=== PATIENT | male | born 1940 | race Caucasian/White ===

== ENCOUNTER 2020-06-11 22:07 | Inpatient (IN) | payer MEDICARE, BC ==
[~2020-06-11] VITALS: Ht 195.6 cm; Wt 104.0 kg
[2020-06-11] MEDS ORDERED: cloNIDine HCL 0.1 MG TAB PO ONE (22:45)
[2020-06-11 23:43] LABS: Basophils # (auto) 0 10 ^3/uL (0-0.2); Basophils % (auto) 0.4 % (0.0-2.0); Eosinophils # (auto) 0.3 10 ^3/uL (0-0.8); Eosinophils % (auto) 3.4 % (0.0-7.0); Hematocrit 40.6 % (41.0-53.0); Hemoglobin 14.5 g/dL (13.5-17.5); Lymphocytes # (auto) 0.7 10 ^3/uL (0.4-5.4); Lymphocytes % (auto) 7.3 % (10.0-50.0); Mean Corpuscular Hemoglobin 31.2 pg (28.0-32.0); Mean Corpuscular Hgb Conc. 35.8 g/dL (32.0-36.0); Mean Corpuscular Volume 87.1 fL (80.0-100.0); Monocytes # (auto) 0.8 10 ^3/uL (0-1.3); Monocytes % (auto) 8.5 % (0.0-12.0); Neutrophils # (auto) 7.3 10 ^3/uL (1.6-8.6); Neutrophils % (auto) 80.4 % (37.0-80.0); Nucleated Red Blood Cells % 0.1 %; Platelet Count (auto) 194 10^3/uL (140-450); Red Blood Cells 4.67 10^6/uL (4.5-5.90); Red Cell Distribution Width 14.4 % (11.8-14.3)
[2020-06-11 23:55] LABS: Albumin 3.4 g/dL (3.4-5.0); BUN/Creatinine Ratio 10.1; Calcium 8.7 mg/dL (8.5-10.1); Magnesium 2.4 mg/dL (1.6-2.6); Potassium 3.3 mmol/L (3.5-5.1)
[2020-06-11 23:58] LABS: Bilirubin, Total 0.4 mg/dL (0.2-1.0); Total Protein 6.4 g/dL (6.4-8.2)
[2020-06-12] MEDS ORDERED: POTASSIUM CHL 20 Meq TABLET PO ONE (01:15)
[2020-06-12 02:28] LABS: Urine Bacteria NONE SEEN /hpf (None Seen); Urine Blood 2+ /uL (Negative); Urine Mucus FEW (None Seen); Urine Specific Gravity 1.013 (1.001-1.035); Urine WBC 53 /hpf (0 - 3)
[2020-06-12] MEDS ORDERED: NITROGLYCERIN 0.4 MG SL TAB SL PRN (02:30)
[2020-06-12] MEDS ORDERED: DEXTROSE (50%) 50ML SYRG IV PRN (02:30)
[2020-06-12] MEDS ORDERED: HYDROcodone-ACET 5/325MG TAB PO PRN (02:30)
[2020-06-12] MEDS ORDERED: MORPHINE SULFATE 4 MG/ML SYR/VIAL IV PRN (02:30)
[2020-06-12] MEDS ORDERED: MORPHINE SULF INJ 2 MG/ML SYRINGE 1ML IV PRN (02:30)
[2020-06-12] MEDS ORDERED: ACETAMINOPHEN 325 MG TAB PO PRN (02:30)
[2020-06-12] MEDS: ONDANSETRON HCL 4 MG/2 ML VIAL IV PRN (03:03)
[2020-06-12] MEDS: hydrALAZINE HCL 20 MG/ML VL IV PRN (03:46)
[2020-06-12] MEDS: hydrALAZINE HCL 25 MG TAB PO SCH ×3 (06:56→22:00)
[2020-06-12] MEDS: SODIUM CHLOR 0.9% PF (SALINE LOCK) 10ML VIAL/SYR IV SCH ×3 (06:56→22:00)
[2020-06-12] MEDS: InsuLIN REG 1unit/0.01ml Soln (100units/ml) SC SCH ×4 (07:01→22:00)
[2020-06-12] MEDS: ACCU-CHEK COMFORT CURVE STRIP VI SCH ×4 (07:01→22:00)
[2020-06-12 07:23] LABS: Basophils # (auto) 0 10 ^3/uL (0-0.2); Basophils % (auto) 0.4 % (0.0-2.0); Eosinophils # (auto) 0.3 10 ^3/uL (0-0.8); Eosinophils % (auto) 3.3 % (0.0-7.0); Hematocrit 39.2 % (41.0-53.0); Hemoglobin 14.1 g/dL (13.5-17.5); Lymphocytes # (auto) 0.7 10 ^3/uL (0.4-5.4); Lymphocytes % (auto) 9.4 % (10.0-50.0); Mean Corpuscular Hgb Conc. 35.9 g/dL (32.0-36.0); Mean Corpuscular Volume 86.4 fL (80.0-100.0); Monocytes # (auto) 0.8 10 ^3/uL (0-1.3); Neutrophils # (auto) 6.1 10 ^3/uL (1.6-8.6); Neutrophils % (auto) 76.9 % (37.0-80.0); Platelet Count (auto) 189 10^3/uL (140-450); Red Blood Cells 4.54 10^6/uL (4.5-5.90); Red Cell Distribution Width 14.1 % (11.8-14.3)
[2020-06-12 07:43] LABS: Potassium 3.6 mmol/L (3.5-5.1)
[2020-06-12 07:47] LABS: Albumin 3.1 g/dL (3.4-5.0); BUN/Creatinine Ratio 8.9; Calcium 8.3 mg/dL (8.5-10.1)
[2020-06-12 07:56] LABS: Bilirubin, Total 0.8 mg/dL (0.2-1.0)
[2020-06-12 09:26] LABS: Cholesterol 147 mg/dL (< 200); HDL Cholesterol 39 mg/dL (40-59); LDL Cholesterol 80 mg/dL (< 100); Triglycerides 250 mg/dL (< 150)
[2020-06-12] MEDS: FAMOTIDINE (10MG/ML) 2ML VL IV SCH ×2 (09:48→22:00)
[2020-06-12] MEDS: amLODIPine BESYLATE 5 MG TAB PO SCH (09:50)
[2020-06-12] MEDS: HEPARIN SODIUM (PORCINE) 5000 UNITS/ML 1ML VIAL SC SCH ×2 (09:50→22:00)
[2020-06-12] MEDS: ASCORBIC ACID 500 MG TAB PO SCH ×2 (09:51→22:00)
[2020-06-12] MEDS: MULTIPLE VITAMIN TAB PO SCH (09:51)
[2020-06-12] MEDS ORDERED: MANNITOL FTV 25% 12.5 GM/50 ML 50 ML IV ONE (13:15)
[2020-06-12] MEDS: SODIUM CHLORIDE 0.9% 1,000 ML IV SCH (13:45)
[2020-06-12] MEDS ORDERED: ASPI-543 PO (14:47)
[2020-06-12] MEDS ORDERED: AMLO-496 PO (14:47)
[2020-06-12] MEDS ORDERED: ERGO1CAP12 PO (14:47)
[2020-06-12] MEDS ORDERED: POTA-167 (14:47)
[2020-06-12] MEDS ORDERED: TAMS0.4C36 PO (14:47)
[2020-06-12] MEDS ORDERED: SPIR25TA8 PO (14:47)
[2020-06-12] MEDS ORDERED: METO1TAB9 PO (14:47)
[2020-06-12] MEDS ORDERED: CLON0.1T PO (14:47)
[2020-06-12 17:00] VITALS: BP 134/71
[2020-06-12] MEDS: TAMSULOSIN HYDROCHLORIDE 0.4 MG CAP PO SCH (17:29)
[2020-06-12 20:00] VITALS: BP 150/75
[2020-06-12 22:00] VITALS: BP 150/75
[2020-06-12] MEDS ORDERED: HEPARIN SODIUM (PORCINE) 5000 UNITS/ML 1ML VIAL ONE (22:38)
[2020-06-13 05:00] VITALS: BP 148/77
[2020-06-13] MEDS: SODIUM CHLOR 0.9% PF (SALINE LOCK) 10ML VIAL/SYR IV SCH ×3 (05:30→21:09)
[2020-06-13] MEDS: SODIUM CHLORIDE 0.9% 1,000 ML IV SCH ×3 (05:30→21:23)
[2020-06-13] MEDS: ACCU-CHEK COMFORT CURVE STRIP VI SCH ×4 (05:48→21:10)
[2020-06-13] MEDS: hydrALAZINE HCL 25 MG TAB PO SCH ×3 (05:48→21:09)
[2020-06-13] MEDS: InsuLIN REG 1unit/0.01ml Soln (100units/ml) SC SCH ×4 (05:53→21:19)
[2020-06-13 06:56] LABS: Basophils # (auto) 0 10 ^3/uL (0-0.2); Basophils % (auto) 0.2 % (0.0-2.0); Eosinophils # (auto) 0.3 10 ^3/uL (0-0.8); Eosinophils % (auto) 4.8 % (0.0-7.0); Hematocrit 36.5 % (41.0-53.0); Lymphocytes # (auto) 0.9 10 ^3/uL (0.4-5.4); Lymphocytes % (auto) 12.6 % (10.0-50.0); Mean Corpuscular Hemoglobin 31.3 pg (28.0-32.0); Mean Corpuscular Hgb Conc. 35.7 g/dL (32.0-36.0); Mean Corpuscular Volume 87.8 fL (80.0-100.0); Monocytes # (auto) 0.8 10 ^3/uL (0-1.3); Monocytes % (auto) 10.9 % (0.0-12.0); Neutrophils % (auto) 71.5 % (37.0-80.0); Platelet Count (auto) 187 10^3/uL (140-450); Red Blood Cells 4.16 10^6/uL (4.5-5.90); Red Cell Distribution Width 14.6 % (11.8-14.3); White Blood Cell 6.9 10^3/uL (4.4-10.8)
[2020-06-13 07:02] LABS: Albumin 2.7 g/dL (3.4-5.0); Calcium 8.1 mg/dL (8.5-10.1)
[2020-06-13 07:07] LABS: BUN/Creatinine Ratio 8.5; Bilirubin, Total 0.5 mg/dL (0.2-1.0); Total Protein 5.7 g/dL (6.4-8.2)
[2020-06-13 08:56] VITALS: BP 133/75
[2020-06-13] MEDS: HEPARIN SODIUM (PORCINE) 5000 UNITS/ML 1ML VIAL SC SCH ×2 (10:04→21:03)
[2020-06-13] MEDS: MULTIPLE VITAMIN TAB PO SCH (10:05)
[2020-06-13] MEDS: FAMOTIDINE (10MG/ML) 2ML VL IV SCH ×2 (10:05→21:09)
[2020-06-13] MEDS: amLODIPine BESYLATE 5 MG TAB PO SCH (10:06)
[2020-06-13] MEDS: ASCORBIC ACID 500 MG TAB PO SCH ×2 (10:06→21:09)
[2020-06-13] MEDS ORDERED: MANNITOL FTV 25% 12.5 GM/50 ML 50 ML IV ONE (11:45)
[2020-06-13 13:12] VITALS: BP 141/70
[2020-06-13 17:03] VITALS: BP 138/76
[2020-06-13] MEDS: TAMSULOSIN HYDROCHLORIDE 0.4 MG CAP PO SCH (17:52)
[2020-06-13 21:48] VITALS: BP 140/77
[2020-06-13] MEDS ORDERED: TEMAZEPAM 15 MG CAP PO ONE (23:15)
[2020-06-14 04:54] VITALS: BP 151/88
[2020-06-14] MEDS: hydrALAZINE HCL 25 MG TAB PO SCH ×3 (05:54→22:08)
[2020-06-14] MEDS: SODIUM CHLOR 0.9% PF (SALINE LOCK) 10ML VIAL/SYR IV SCH ×3 (05:58→22:08)
[2020-06-14] MEDS: ACCU-CHEK COMFORT CURVE STRIP VI SCH ×4 (06:23→22:09)
[2020-06-14] MEDS: InsuLIN REG 1unit/0.01ml Soln (100units/ml) SC SCH ×4 (06:23→22:08)
[2020-06-14 08:03] LABS: BUN/Creatinine Ratio 8.2; Calcium 7.9 mg/dL (8.5-10.1); Potassium 4.3 mmol/L (3.5-5.1)
[2020-06-14 09:00] VITALS: BP 141/77
[2020-06-14] MEDS: ASCORBIC ACID 500 MG TAB PO SCH ×2 (09:44→22:09)
[2020-06-14] MEDS: FAMOTIDINE (10MG/ML) 2ML VL IV SCH ×2 (09:44→22:08)
[2020-06-14] MEDS: HEPARIN SODIUM (PORCINE) 5000 UNITS/ML 1ML VIAL SC SCH ×2 (09:44→22:00)
[2020-06-14] MEDS: DOCUSATE SOD 100 MG CAP PO SCH ×2 (09:44→22:09)
[2020-06-14] MEDS: MULTIPLE VITAMIN TAB PO SCH (09:44)
[2020-06-14] MEDS: amLODIPine BESYLATE 5 MG TAB PO SCH (09:45)
[2020-06-14 10:58] LABS: INR 1.01 (0.9-1.15); Partial Thromboplastin Time 29.2 sec (23.0-31.2)
[2020-06-14] MEDS ORDERED: HEPARIN IN NS 1000Units/500mL 0 ML ONE (11:18)
[2020-06-14] MEDS ORDERED: IODIXANOL 320MG/ML 100ML BTL IV ONE (11:18)
[2020-06-14] MEDS ORDERED: LIDOCAINE 2%HCL (LOCAL ANESTH.) INJ 20ML MDV ONE ×2 (11:18→12:13)
[2020-06-14] MEDS ORDERED: fentaNYL CITRATE 100 MCG/2 ML VL ONE (12:12)
[2020-06-14] MEDS ORDERED: MIDAZOLAM HCL 1MG/1ML-2 ML VIAL ONE (12:12)
[2020-06-14] MEDS ORDERED: IOHEXOL 350 MG/ML 100ML IJ ONE (12:24)
[2020-06-14] MEDS: SODIUM CHLORIDE 0.9% 1,000 ML IV SCH (16:45)
[2020-06-14 17:00] VITALS: BP 147/80
[2020-06-14] MEDS: TAMSULOSIN HYDROCHLORIDE 0.4 MG CAP PO SCH (17:09)
[2020-06-14 22:00] VITALS: BP 143/77
[2020-06-15 05:00] VITALS: BP 151/69
[2020-06-15] MEDS: hydrALAZINE HCL 25 MG TAB PO SCH ×3 (06:13→22:32)
[2020-06-15] MEDS: SODIUM CHLOR 0.9% PF (SALINE LOCK) 10ML VIAL/SYR IV SCH ×3 (06:13→22:00)
[2020-06-15] MEDS: ACCU-CHEK COMFORT CURVE STRIP VI SCH ×4 (06:13→22:33)
[2020-06-15] MEDS: InsuLIN REG 1unit/0.01ml Soln (100units/ml) SC SCH ×4 (06:21→22:37)
[2020-06-15] MEDS: SODIUM CHLORIDE 0.9% 1,000 ML IV SCH ×2 (06:33→12:30)
[2020-06-15 06:34] LABS: BUN/Creatinine Ratio 11.1; Calcium 8.8 mg/dL (8.5-10.1); Potassium 3.9 mmol/L (3.5-5.1)
[2020-06-15 06:47] LABS: Basophils # (auto) 0 10 ^3/uL (0-0.2); Basophils % (auto) 0.4 % (0.0-2.0); Eosinophils # (auto) 0 10 ^3/uL (0-0.8); Eosinophils % (auto) 0.7 % (0.0-7.0); Hematocrit 38.8 % (41.0-53.0); Hemoglobin 13.7 g/dL (13.5-17.5); Lymphocytes # (auto) 0.5 10 ^3/uL (0.4-5.4); Lymphocytes % (auto) 8.7 % (10.0-50.0); Mean Corpuscular Hemoglobin 30.9 pg (28.0-32.0); Mean Corpuscular Hgb Conc. 35.3 g/dL (32.0-36.0); Mean Corpuscular Volume 87.5 fL (80.0-100.0); Monocytes # (auto) 0.7 10 ^3/uL (0-1.3); Monocytes % (auto) 11.2 % (0.0-12.0); Neutrophils # (auto) 4.7 10 ^3/uL (1.6-8.6); Platelet Count (auto) 238 10^3/uL (140-450); Red Blood Cells 4.44 10^6/uL (4.5-5.90); Red Cell Distribution Width 14.5 % (11.8-14.3)
[2020-06-15 09:00] VITALS: BP 142/75
[2020-06-15] MEDS: HEPARIN SODIUM (PORCINE) 5000 UNITS/ML 1ML VIAL SC SCH ×2 (10:47→22:24)
[2020-06-15] MEDS: FAMOTIDINE (10MG/ML) 2ML VL IV SCH ×2 (10:47→22:00)
[2020-06-15] MEDS: ASCORBIC ACID 500 MG TAB PO SCH ×2 (10:48→22:26)
[2020-06-15] MEDS: amLODIPine BESYLATE 5 MG TAB PO SCH (10:48)
[2020-06-15] MEDS: MULTIPLE VITAMIN TAB PO SCH (10:49)
[2020-06-15] MEDS: DOCUSATE SOD 100 MG CAP PO SCH ×2 (10:49→22:26)
[2020-06-15 13:00] VITALS: BP 156/86
[2020-06-15 17:00] VITALS: BP 144/87
[2020-06-15] MEDS: TAMSULOSIN HYDROCHLORIDE 0.4 MG CAP PO SCH (18:02)
[2020-06-15 22:00] VITALS: BP 170/90
[2020-06-16 05:00] VITALS: BP 135/66
[2020-06-16] MEDS: SODIUM CHLORIDE 0.9% 1,000 ML IV SCH ×2 (05:10→23:02)
[2020-06-16] MEDS: SODIUM CHLOR 0.9% PF (SALINE LOCK) 10ML VIAL/SYR IV SCH ×3 (06:00→22:00)
[2020-06-16] MEDS: hydrALAZINE HCL 25 MG TAB PO SCH ×3 (06:09→22:44)
[2020-06-16] MEDS: ACCU-CHEK COMFORT CURVE STRIP VI SCH ×4 (06:13→23:01)
[2020-06-16] MEDS: InsuLIN REG 1unit/0.01ml Soln (100units/ml) SC SCH ×4 (06:14→23:01)
[2020-06-16 08:44] LABS: Albumin 3.1 g/dL (3.4-5.0); Calcium 8.7 mg/dL (8.5-10.1); Potassium 3.4 mmol/L (3.5-5.1)
[2020-06-16 08:46] LABS: BUN/Creatinine Ratio 15.5
[2020-06-16 08:49] LABS: Bilirubin, Total 0.6 mg/dL (0.2-1.0); Phosphorus 3.9 mg/dL (2.5-4.90)
[2020-06-16 09:00] VITALS: BP 154/89
[2020-06-16] MEDS: FAMOTIDINE (10MG/ML) 2ML VL IV SCH ×2 (10:00→22:41)
[2020-06-16] MEDS: DOCUSATE SOD 100 MG CAP PO SCH ×2 (10:28→22:42)
[2020-06-16] MEDS: MULTIPLE VITAMIN TAB PO SCH (10:28)
[2020-06-16] MEDS: ASCORBIC ACID 500 MG TAB PO SCH ×2 (10:29→22:42)
[2020-06-16] MEDS: amLODIPine BESYLATE 5 MG TAB PO SCH (10:29)
[2020-06-16] MEDS: HEPARIN SODIUM (PORCINE) 5000 UNITS/ML 1ML VIAL SC SCH ×2 (10:34→23:00)
[2020-06-16] MEDS ORDERED: LACTULOSE 20Gm/30ML SOLN PO PRN (12:45)
[2020-06-16 13:00] VITALS: BP 147/77
[2020-06-16 17:00] VITALS: BP 155/91
[2020-06-16] MEDS: TAMSULOSIN HYDROCHLORIDE 0.4 MG CAP PO SCH (18:46)
[2020-06-17 05:00] VITALS: BP 147/72
[2020-06-17] MEDS: hydrALAZINE HCL 25 MG TAB PO SCH ×3 (05:53→22:07)
[2020-06-17] MEDS: SODIUM CHLOR 0.9% PF (SALINE LOCK) 10ML VIAL/SYR IV SCH ×3 (05:54→22:07)
[2020-06-17] MEDS: ACCU-CHEK COMFORT CURVE STRIP VI SCH ×4 (06:43→22:08)
[2020-06-17] MEDS: InsuLIN REG 1unit/0.01ml Soln (100units/ml) SC SCH ×4 (06:43→22:10)
[2020-06-17 07:17] LABS: Hematocrit 37.3 % (41.0-53.0); Hemoglobin 13.3 g/dL (13.5-17.5)
[2020-06-17 07:35] LABS: Albumin 2.8 g/dL (3.4-5.0); Calcium 8.1 mg/dL (8.5-10.1); Magnesium 1.8 mg/dL (1.6-2.6)
[2020-06-17 07:39] LABS: BUN/Creatinine Ratio 19.2; Bilirubin, Total 0.5 mg/dL (0.2-1.0); Total Protein 6.4 g/dL (6.4-8.2)
[2020-06-17 08:00] VITALS: BP 152/82
[2020-06-17 09:00] VITALS: BP 152/82
[2020-06-17] MEDS: HEPARIN SODIUM (PORCINE) 5000 UNITS/ML 1ML VIAL SC SCH ×2 (10:30→22:16)
[2020-06-17] MEDS ORDERED: POTASSIUM EFFERVESENT TAB 25 MEQ PO ONE (11:00)
[2020-06-17] MEDS ORDERED: POTASSIUM CHL 20 Meq TABLET PO ONE (11:15)
[2020-06-17] MEDS: FAMOTIDINE (10MG/ML) 2ML VL IV SCH ×2 (12:20→22:07)
[2020-06-17 13:00] VITALS: BP 143/90
[2020-06-17] MEDS ORDERED: ceFAZolin 1GM/50ML 0 ML IV ONE (13:52)
[2020-06-17] MEDS ORDERED: MAGNESIUM SULFATE 1GM/100ML 100 ML IV ONE (14:00)
[2020-06-17] MEDS ORDERED: IOHEXOL 300 MG/ML 100ML BOTTLE IJ ONE (15:43)
[2020-06-17] MEDS ORDERED: ceFAZolin 1GM/50ML 50 ML IV ONE (15:47)
[2020-06-17] MEDS ORDERED: ONDANSETRON HCL 4 MG/2 ML VIAL IV PRN (16:45)
[2020-06-17] MEDS ORDERED: HYDROmorphone HCL 2 MG/ML VL IV PRN ×2 (16:45)
[2020-06-17] MEDS ORDERED: hydrALAZINE HCL 20 MG/ML VL IV PRN ×2 (16:45)
[2020-06-17] MEDS ORDERED: LABETALOL HCL 5 MG/ML 4ML SYRINGE IV PRN ×2 (16:45)
[2020-06-17] MEDS: DOCUSATE SOD 100 MG CAP PO SCH ×2 (17:52→22:08)
[2020-06-17] MEDS: ASCORBIC ACID 500 MG TAB PO SCH ×2 (17:53→22:08)
[2020-06-17] MEDS: MULTIPLE VITAMIN TAB PO SCH (17:53)
[2020-06-17] MEDS: SODIUM CHLORIDE 0.9% 1,000 ML IV SCH (17:55)
[2020-06-17] MEDS: amLODIPine BESYLATE 5 MG TAB PO SCH (17:55)
[2020-06-17] MEDS: TAMSULOSIN HYDROCHLORIDE 0.4 MG CAP PO SCH (18:43)
[2020-06-17] MEDS: ONDANSETRON HCL 4 MG/2 ML VIAL IV PRN (19:00)
[2020-06-17] MEDS: hydrALAZINE HCL 20 MG/ML VL IV PRN (19:37)
[2020-06-17 20:35] VITALS: BP 160/93
[2020-06-17] MEDS ORDERED: CALCIUM CARB 500 MG CHEW TAB PO PRN (22:00)
[2020-06-18 05:00] VITALS: BP 158/98
[2020-06-18] MEDS: SODIUM CHLOR 0.9% PF (SALINE LOCK) 10ML VIAL/SYR IV SCH (05:13)
[2020-06-18] MEDS: hydrALAZINE HCL 25 MG TAB PO SCH (05:14)
[2020-06-18] MEDS: ACCU-CHEK COMFORT CURVE STRIP VI SCH ×2 (06:08→11:30)
[2020-06-18] MEDS: InsuLIN REG 1unit/0.01ml Soln (100units/ml) SC SCH ×2 (06:09→11:55)
[2020-06-18] MEDS: hydrALAZINE HCL 20 MG/ML VL IV PRN (06:17)
[2020-06-18 06:51] VITALS: BP 159/84
[2020-06-18 08:21] VITALS: BP 150/84
[2020-06-18] MEDS: SODIUM CHLORIDE 0.9% 1,000 ML IV SCH (08:25)
[2020-06-18 09:00] VITALS: BP 150/84
[2020-06-18] MEDS: HEPARIN SODIUM (PORCINE) 5000 UNITS/ML 1ML VIAL SC SCH (10:00)
[2020-06-18 10:17] LABS: Hematocrit 39.4 % (41.0-53.0); Hemoglobin 13.5 g/dL (13.5-17.5)
[2020-06-18 10:29] LABS: Albumin 2.9 g/dL (3.4-5.0); Calcium 8.5 mg/dL (8.5-10.1); Potassium 3.1 mmol/L (3.5-5.1)
[2020-06-18 10:32] LABS: BUN/Creatinine Ratio 16.7; Bilirubin, Total 0.4 mg/dL (0.2-1.0); Total Protein 6.3 g/dL (6.4-8.2)
[2020-06-18] MEDS: FAMOTIDINE (10MG/ML) 2ML VL IV SCH (10:34)
[2020-06-18] MEDS: DOCUSATE SOD 100 MG CAP PO SCH (10:35)
[2020-06-18] MEDS: ASCORBIC ACID 500 MG TAB PO SCH (10:35)
[2020-06-18] MEDS: MULTIPLE VITAMIN TAB PO SCH (10:35)
[2020-06-18] MEDS: amLODIPine BESYLATE 5 MG TAB PO SCH (10:35)
[2020-06-18] MEDS ORDERED: cloNIDine HCL 0.1 MG TAB PO ONE (12:30)
[2020-06-18 13:05] VITALS: BP 160/90
[2020-06-18 13:19] VITALS: BP 160/90
== END 2020-06-18 14:10 | disposition home health service (06) | DRG 694 ==
LOC: ER 22:07 → EDBD 22:07 → TELE 06-12 02:31 → TELE-EAST 06-12 14:22
PROVIDERS: ADMIT Nurse Practitioner Family; ATTEND Family Medicine
PROC: 0T9330Z Drainage of Right Kidney Pelvis with Drainage Device, Percutaneous Approach (ICD-10-PCS; principal; 2020-06-14)
PROC: BT1D1ZZ Fluoroscopy of Right Kidney, Ureter and Bladder using Low Osmolar Contrast (ICD-10-PCS; 2020-06-14)
PROC: BT41ZZZ Ultrasonography of Right Kidney (ICD-10-PCS; 2020-06-14)
PROC: 0TF6XZZ Fragmentation in Right Ureter, External Approach (ICD-10-PCS; 2020-06-17)
DX: N13.2 Hydronephrosis with renal and ureteral calculous obstruction (principal); E87.1 Hypo-osmolality and hyponatremia; N17.0 Acute kidney failure with tubular necrosis; E87.6 Hypokalemia; I16.0 Hypertensive urgency; N18.32 Chronic kidney disease, stage 3b; E11.22 Type 2 diabetes mellitus with diabetic chronic kidney disease; E11.65 Type 2 diabetes mellitus with hyperglycemia; R81 Glycosuria; K59.00 Constipation, unspecified; Z20.822 Contact with and (suspected) exposure to COVID-19; Z87.442 Personal history of urinary calculi; Z90.49 Acquired absence of other specified parts of digestive tract; Z88.8 Allergy status to other drugs, medicaments and biological substances; I10 Essential (primary) hypertension
CPT/HCPCS: 36415; 51702; 71045; 74018; 74176; 74425; 76942; 80048; 80053; 80061; 81001; 82150; 82306; 82962; 83036; 83690; 83735; 83970; 84100; 85014; 85018; 85025; 85610; 85730; 87086; 96374; 96375; 99152; A4565; C1729; G0378; J0690; J1815; J2250; J2405; J3490; Q9967

== ENCOUNTER → 2020-07-27 | Outpatient (CLI) | payer MEDICARE, BC ==
[~2020-07-27] MED LIST: AMLO-496 PO; ASPI-543 PO; CLON0.1T PO; ERGO1CAP12 PO; METO1TAB9 PO; POTA-167; SPIR25TA8 PO; TAMS0.4C36 PO
[2020-07-27 11:14] LABS: Calcium 8.9 mg/dL (8.5-10.1); Potassium 3.3 mmol/L (3.5-5.1)
[2020-07-27 11:16] LABS: BUN/Creatinine Ratio 15.8
== END | disposition home or self-care (01) ==
LOC: LAB 10:18
PROVIDERS: ATTEND Urology
DX: N20.1 Calculus of ureter (principal); Z90.5 Acquired absence of kidney; Z98.890 Other specified postprocedural states
CPT/HCPCS: 36415; 80048

== ENCOUNTER → 2020-07-29 | Outpatient (CLI) | payer MEDICARE, BC ==
[2020-07-29 08:05] LABS: BUN/Creatinine Ratio 11.8; Potassium 3.3 mmol/L (3.5-5.1)
== END | disposition home or self-care (01) ==
LOC: LAB 07:16
PROVIDERS: ATTEND Urology
DX: Z98.890 Other specified postprocedural states (principal); Z90.5 Acquired absence of kidney
CPT/HCPCS: 36415; 80048

== ENCOUNTER 2020-07-30 20:42 | Inpatient (IN) | payer MEDICARE, BC ==
[~2020-07-30] VITALS: Ht 193 cm; Wt 96.4 kg
[2020-07-30 21:38] LABS: Basophils # (auto) 0 10 ^3/uL (0-0.2); Basophils % (auto) 0.1 % (0.0-2.0); Eosinophils # (auto) 0 10 ^3/uL (0-0.8); Hematocrit 39.2 % (41.0-53.0); Hemoglobin 13.7 g/dL (13.5-17.5); Lymphocytes # (auto) 0.5 10 ^3/uL (0.4-5.4); Lymphocytes % (auto) 1.9 % (10.0-50.0); Mean Corpuscular Hemoglobin 31.3 pg (28.0-32.0); Mean Corpuscular Volume 89.4 fL (80.0-100.0); Monocytes # (auto) 1.7 10 ^3/uL (0-1.3); Monocytes % (auto) 6.1 % (0.0-12.0); Neutrophils # (auto) 25.8 10 ^3/uL (1.6-8.6); Neutrophils % (auto) 91.9 % (37.0-80.0); Nucleated Red Blood Cells % 1.1 %; Platelet Count (auto) 272 10^3/uL (140-450); Red Blood Cells 4.38 10^6/uL (4.5-5.90); Red Cell Distribution Width 14.9 % (11.8-14.3)
[2020-07-30 21:47] LABS: Potassium 3.8 mmol/L (3.5-5.1)
[2020-07-30 21:49] LABS: Lactic Acid w/Reflex 3.1 mmol/L (0.4-2.0)
[2020-07-30 21:54] LABS: Albumin 3.1 g/dL (3.4-5.0); BUN/Creatinine Ratio 8.5; Calcium 9.9 mg/dL (8.5-10.1); Total Protein 7.1 g/dL (6.4-8.2)
[2020-07-30] MEDS ORDERED: SODIUM CHLORIDE 0.9% 1,000 ML IV ONE (23:15)
[2020-07-30] MEDS ORDERED: PIPERACILLIN-TAZOB 3.375GM 100 ML IV ONE (23:15)
[2020-07-31 00:12] LABS: Urine Bacteria NONE SEEN /hpf (None Seen); Urine Blood 2+ /uL (Negative); Urine Specific Gravity 1.016 (1.001-1.035); Urine WBC 1069 /hpf (0 - 3); Urine WBC Clumps PRESENT /hpf (None Seen)
[2020-07-31] MEDS ORDERED: VANCOMYCIN 1GM/250ML 250 ML IV ONE (00:15)
[2020-07-31] MEDS ORDERED: ACETAMINOPHEN 500 MG TAB PO ONE (01:00)
[2020-07-31] MEDS ORDERED: NITROGLYCERIN 0.4 MG SL TAB SL PRN (06:15)
[2020-07-31] MEDS ORDERED: ACETAMINOPHEN 325 MG TAB PO PRN (06:15)
[2020-07-31] MEDS ORDERED: MORPHINE SULFATE 4 MG/ML SYR/VIAL IV PRN (06:15)
[2020-07-31] MEDS ORDERED: SODIUM CHLORIDE 0.9% 1,000 ML IV SCH ×2 (06:15→14:00)
[2020-07-31] MEDS ORDERED: DOCUSATE SOD 100 MG CAP PO PRN (06:15)
[2020-07-31] MEDS ORDERED: VANCOMYCIN PER PHARMACY 0 MG IV SCH ×3 (06:15→23:15)
[2020-07-31] MEDS ORDERED: HYDROcodone-ACET 5/325MG TAB PO PRN (06:15)
[2020-07-31] MEDS ORDERED: MORPHINE SULF INJ 2 MG/ML SYRINGE 1ML IV PRN (06:15)
[2020-07-31] MEDS ORDERED: ONDANSETRON HCL 4 MG/2 ML VIAL IV PRN (06:15)
[2020-07-31] MEDS ORDERED: SODIUM CHLORIDE 0.9% 1,000 ML IV ONE ×2 (06:30)
[2020-07-31] MEDS ORDERED: SODIUM CHL 3% 500 ML IV ONE (06:45)
[2020-07-31] MEDS: PIPERACILLIN-TAZOB 2.25GM 50 ML IV SCH ×3 (07:00→21:04)
[2020-07-31 08:52] LABS: Basophils # (auto) 0 10 ^3/uL (0-0.2); Eosinophils # (auto) 0 10 ^3/uL (0-0.8); Hematocrit 35.6 % (41.0-53.0); Lymphocytes # (auto) 0.3 10 ^3/uL (0.4-5.4); Lymphocytes % (auto) 1.7 % (10.0-50.0); Mean Corpuscular Hemoglobin 30.4 pg (28.0-32.0); Mean Corpuscular Hgb Conc. 33.7 g/dL (32.0-36.0); Mean Corpuscular Volume 90.2 fL (80.0-100.0); Monocytes # (auto) 0.9 10 ^3/uL (0-1.3); Monocytes % (auto) 4.5 % (0.0-12.0); Neutrophils % (auto) 93.8 % (37.0-80.0); Platelet Count (auto) 226 10^3/uL (140-450); Red Blood Cells 3.95 10^6/uL (4.5-5.90); Red Cell Distribution Width 14.8 % (11.8-14.3); White Blood Cell 20.3 10^3/uL (4.4-10.8)
[2020-07-31 09:00] VITALS: BP 138/75
[2020-07-31 09:21] LABS: Albumin 2.4 g/dL (3.4-5.0); BUN/Creatinine Ratio 6.4; Calcium 7.9 mg/dL (8.5-10.1); Potassium 3.5 mmol/L (3.5-5.1)
[2020-07-31 09:23] LABS: Bilirubin, Total 0.8 mg/dL (0.2-1.0); Total Protein 5.7 g/dL (6.4-8.2)
[2020-07-31] MEDS ORDERED: FUROSEMIDE 20 MG/2 ML VIAL IV SCH (10:00)
[2020-07-31] MEDS ORDERED: ZINC SULFATE 220mg CAP or TAB PO SCH (10:00)
[2020-07-31] MEDS ORDERED: FAMOTIDINE 20 MG TAB PO SCH (10:00)
[2020-07-31] MEDS ORDERED: ASCORBIC ACID 500 MG TAB PO SCH (10:00)
[2020-07-31] MEDS: HEPARIN SODIUM (PORCINE) 5000 UNITS/ML 1ML VIAL SC SCH ×2 (12:13→21:05)
[2020-07-31] MEDS: MULTIPLE VITAMIN TAB PO SCH (12:14)
[2020-07-31] MEDS: METOPROLOL TARTRATE 25 MG TAB PO SCH ×2 (12:18→21:25)
[2020-07-31 13:00] VITALS: BP 139/85
[2020-07-31] MEDS: SODIUM BICARBONATE 50ML VIAL 75 ML in SOD CHL 0.45% 1,000 ML IV SCH (15:39)
[2020-07-31 21:10] LABS: BUN/Creatinine Ratio 11.4; Calcium 8.1 mg/dL (8.5-10.1); Potassium 3.7 mmol/L (3.5-5.1)
[2020-07-31 22:00] VITALS: BP 98/61
[2020-07-31 22:07] LABS: Urine Bacteria NONE SEEN /hpf (None Seen); Urine Blood 3+ /uL (Negative); Urine Specific Gravity 1.017 (1.001-1.035); Urine WBC 640 /hpf (0 - 3)
[2020-08-01 05:00] VITALS: BP 124/77
[2020-08-01] MEDS: SODIUM BICARBONATE 50ML VIAL 75 ML in SOD CHL 0.45% 1,000 ML IV SCH ×2 (05:12→11:06)
[2020-08-01] MEDS: PIPERACILLIN-TAZOB 2.25GM 50 ML IV SCH ×3 (05:29→22:04)
[2020-08-01 07:50] LABS: Hematocrit 33.7 % (41.0-53.0); Hemoglobin 11.5 g/dL (13.5-17.5); Mean Corpuscular Hemoglobin 30.8 pg (28.0-32.0); Mean Corpuscular Hgb Conc. 34.1 g/dL (32.0-36.0); Mean Corpuscular Volume 90.4 fL (80.0-100.0); Platelet Count (auto) 205 10^3/uL (140-450); Red Blood Cells 3.73 10^6/uL (4.5-5.90); Red Cell Distribution Width 15.3 % (11.8-14.3); White Blood Cell 24.5 10^3/uL (4.4-10.8)
[2020-08-01 07:56] LABS: Basophils % (manual) 0 (0.0-2.0); Blast Cells 0; Eosinophils % (manual) 0 (0-7); Metamyelocytes % 0; Myelocytes % 0; Promyelocytes % 0; Reactive Lymphocytes 0
[2020-08-01 08:06] LABS: Albumin 2.1 g/dL (3.4-5.0); Potassium 3.6 mmol/L (3.5-5.1)
[2020-08-01 08:10] LABS: BUN/Creatinine Ratio 14.1; Bilirubin, Total 0.6 mg/dL (0.2-1.0); Total Protein 5.3 g/dL (6.4-8.2)
[2020-08-01] MEDS: METOPROLOL TARTRATE 25 MG TAB PO SCH ×3 (08:30→22:04)
[2020-08-01] MEDS: MULTIPLE VITAMIN TAB PO SCH (08:30)
[2020-08-01] MEDS: HEPARIN SODIUM (PORCINE) 5000 UNITS/ML 1ML VIAL SC SCH ×2 (08:31→22:00)
[2020-08-01 09:06] VITALS: BP 137/94
[2020-08-01] MEDS ORDERED: METOPROLOL TARTRATE 25 MG TAB PO ONE (10:00)
[2020-08-01] MEDS ORDERED: DIGOXIN (250MCG/ML) 2 ML AMPULE IV ONE (10:30)
[2020-08-01] MEDS ORDERED: MET50T PO (10:46)
[2020-08-01] MEDS ORDERED: ATOR10TA52 PO (10:46)
[2020-08-01] MEDS ORDERED: FAMO20TA10 PO (10:46)
[2020-08-01] MEDS ORDERED: METO25TA5 PO (10:46)
[2020-08-01] MEDS ORDERED: HYDR12.56 PO (10:46)
[2020-08-01] MEDS ORDERED: LORA-35 PO (10:46)
[2020-08-01 12:40] LABS: Band Neutrophils % (manual) 16; Lymphocytes % (manual) 3 (10.0-50.0); Monocytes % (manual) 4 (0-12)
[2020-08-01 13:00] VITALS: BP 96/55
[2020-08-01 16:18] VITALS: BP 88/53
[2020-08-01 22:00] VITALS: BP 114/71
[2020-08-01] MEDS ORDERED: FAMOTIDINE 20 MG TAB PO SCH (22:00)
[2020-08-02 05:00] VITALS: BP 127/74
[2020-08-02] MEDS: PIPERACILLIN-TAZOB 2.25GM 50 ML IV SCH ×3 (05:38→17:57)
[2020-08-02] MEDS: SODIUM BICARBONATE 50ML VIAL 75 ML in SOD CHL 0.45% 1,000 ML IV SCH (05:58)
[2020-08-02 07:13] LABS: Potassium 3.1 mmol/L (3.5-5.1)
[2020-08-02 07:16] LABS: INR 1.06 (0.9-1.15); Partial Thromboplastin Time 33.1 sec (23.0-31.2)
[2020-08-02 07:21] LABS: BUN/Creatinine Ratio 18.7; Calcium 7.6 mg/dL (8.5-10.1)
[2020-08-02 09:00] VITALS: BP 126/72
[2020-08-02] MEDS: MULTIPLE VITAMIN TAB PO SCH (09:18)
[2020-08-02] MEDS: FAMOTIDINE 20 MG TAB PO SCH (09:18)
[2020-08-02] MEDS: DIGOXIN 0.125 MG TAB PO SCH (09:19)
[2020-08-02] MEDS: METOPROLOL TARTRATE 25 MG TAB PO SCH ×3 (09:19→22:12)
[2020-08-02] MEDS: HEPARIN SODIUM (PORCINE) 5000 UNITS/ML 1ML VIAL SC SCH ×2 (09:19→22:02)
[2020-08-02] MEDS ORDERED: FAMOTIDINE 20 MG TAB PO SCH (10:00)
[2020-08-02 13:00] VITALS: BP 114/74
[2020-08-02] MEDS ORDERED: IODIXANOL 320MG/ML 100ML BTL IV ONE (13:06)
[2020-08-02] MEDS ORDERED: LIDOCAINE 2%HCL (LOCAL ANESTH.) INJ 20ML MDV ONE ×2 (13:06→13:50)
[2020-08-02] MEDS ORDERED: fentaNYL CITRATE 100 MCG/2 ML VL ONE (13:18)
[2020-08-02] MEDS ORDERED: MIDAZOLAM HCL 1MG/1ML-2 ML VIAL ONE (13:18)
[2020-08-02 16:57] VITALS: BP 123/90
[2020-08-02] MEDS: TAMSULOSIN HYDROCHLORIDE 0.4 MG CAP PO SCH (17:56)
[2020-08-02 22:00] VITALS: BP 133/67
[2020-08-02] MEDS ORDERED: METOCLOPRAMIDE HCL 5MG/ml INJ 2ml VIAL IV ONE (22:45)
[2020-08-03] MEDS: PIPERACILLIN-TAZOB 2.25GM 50 ML IV SCH ×4 (01:08→17:38)
[2020-08-03 05:00] VITALS: BP 138/87
[2020-08-03] MEDS: SODIUM BICARBONATE 50ML VIAL 75 ML in SOD CHL 0.45% 1,000 ML IV SCH (05:43)
[2020-08-03 07:33] LABS: Calcium 7.2 mg/dL (8.5-10.1)
[2020-08-03 07:37] LABS: Potassium 2.8 mmol/L (3.5-5.1)
[2020-08-03] MEDS ORDERED: POTASSIUM CHL 20 Meq TABLET PO ONE ×2 (07:45→11:15)
[2020-08-03 08:50] VITALS: BP 129/80
[2020-08-03] MEDS: METOPROLOL TARTRATE 25 MG TAB PO SCH ×2 (09:12→21:51)
[2020-08-03] MEDS: DIGOXIN 0.125 MG TAB PO SCH (09:12)
[2020-08-03] MEDS: MULTIPLE VITAMIN TAB PO SCH (09:13)
[2020-08-03] MEDS: HEPARIN SODIUM (PORCINE) 5000 UNITS/ML 1ML VIAL SC SCH ×2 (09:35→21:22)
[2020-08-03] MEDS ORDERED: BACLOFEN 10 MG TAB PO PRN (11:15)
[2020-08-03] MEDS ORDERED: BACLOFEN 10 MG TAB PO ONE (11:15)
[2020-08-03] MEDS: SODIUM CHLORIDE 0.9% 1,000 ML IV SCH (11:27)
[2020-08-03 11:56] LABS: Basophils # (auto) 0 10 ^3/uL (0-0.2); Basophils % (auto) 0.2 % (0.0-2.0); Eosinophils # (auto) 0 10 ^3/uL (0-0.8); Eosinophils % (auto) 0.2 % (0.0-7.0); Hematocrit 31.6 % (41.0-53.0); Lymphocytes # (auto) 0.5 10 ^3/uL (0.4-5.4); Mean Corpuscular Hemoglobin 30.5 pg (28.0-32.0); Mean Corpuscular Hgb Conc. 34.7 g/dL (32.0-36.0); Mean Corpuscular Volume 87.9 fL (80.0-100.0); Monocytes % (auto) 6.1 % (0.0-12.0); Neutrophils # (auto) 14.2 10 ^3/uL (1.6-8.6); Neutrophils % (auto) 90.5 % (37.0-80.0); Nucleated Red Blood Cells % 0.2 %; Platelet Count (auto) 225 10^3/uL (140-450); Red Cell Distribution Width 14.9 % (11.8-14.3); White Blood Cell 15.7 10^3/uL (4.4-10.8)
[2020-08-03 13:00] VITALS: BP 119/59
[2020-08-03 15:52] LABS: Calcium 7.4 mg/dL (8.5-10.1)
[2020-08-03 15:54] LABS: BUN/Creatinine Ratio 21.8
[2020-08-03 16:57] VITALS: BP 136/79
[2020-08-03] MEDS: TAMSULOSIN HYDROCHLORIDE 0.4 MG CAP PO SCH (17:39)
[2020-08-03 22:07] VITALS: BP 149/87
[2020-08-04] MEDS: PIPERACILLIN-TAZOB 2.25GM 50 ML IV SCH ×5 (00:27→23:31)
[2020-08-04] MEDS: SODIUM CHLORIDE 0.9% 1,000 ML IV SCH ×3 (00:29→22:13)
[2020-08-04 05:00] VITALS: BP 137/91
[2020-08-04 05:57] LABS: Basophils # (auto) 0 10 ^3/uL (0-0.2); Basophils % (auto) 0.1 % (0.0-2.0); Eosinophils # (auto) 0.1 10 ^3/uL (0-0.8); Eosinophils % (auto) 0.9 % (0.0-7.0); Hematocrit 33.1 % (41.0-53.0); Hemoglobin 11.5 g/dL (13.5-17.5); Lymphocytes # (auto) 0.6 10 ^3/uL (0.4-5.4); Lymphocytes % (auto) 5.7 % (10.0-50.0); Mean Corpuscular Hemoglobin 30.7 pg (28.0-32.0); Mean Corpuscular Hgb Conc. 34.7 g/dL (32.0-36.0); Mean Corpuscular Volume 88.4 fL (80.0-100.0); Monocytes # (auto) 1.1 10 ^3/uL (0-1.3); Monocytes % (auto) 11.3 % (0.0-12.0); Nucleated Red Blood Cells % 0.1 %; Platelet Count (auto) 231 10^3/uL (140-450); Red Blood Cells 3.74 10^6/uL (4.5-5.90); Red Cell Distribution Width 15.1 % (11.8-14.3); White Blood Cell 9.7 10^3/uL (4.4-10.8)
[2020-08-04 06:25] LABS: Potassium 3.1 mmol/L (3.5-5.1)
[2020-08-04 06:31] LABS: BUN/Creatinine Ratio 22.3; Calcium 7.5 mg/dL (8.5-10.1)
[2020-08-04 09:00] VITALS: BP 141/84
[2020-08-04] MEDS: METOPROLOL TARTRATE 25 MG TAB PO SCH ×2 (09:58→22:14)
[2020-08-04] MEDS: MULTIPLE VITAMIN TAB PO SCH (09:58)
[2020-08-04] MEDS: DIGOXIN 0.125 MG TAB PO SCH (09:58)
[2020-08-04] MEDS: FAMOTIDINE 20 MG TAB PO SCH (09:58)
[2020-08-04] MEDS: HEPARIN SODIUM (PORCINE) 5000 UNITS/ML 1ML VIAL SC SCH ×2 (09:59→22:15)
[2020-08-04] MEDS ORDERED: POTASSIUM CHL 20 Meq TABLET PO ONE (11:30)
[2020-08-04 13:00] VITALS: BP 125/85
[2020-08-04 17:00] VITALS: BP 153/88
[2020-08-04] MEDS: TAMSULOSIN HYDROCHLORIDE 0.4 MG CAP PO SCH (17:31)
[2020-08-04 22:22] VITALS: BP 146/83
[2020-08-05 05:07] VITALS: BP 143/84
[2020-08-05] MEDS: PIPERACILLIN-TAZOB 2.25GM 50 ML IV SCH ×4 (05:31→23:52)
[2020-08-05 07:57] LABS: BUN/Creatinine Ratio 20.1; Calcium 7.8 mg/dL (8.5-10.1); Potassium 3.2 mmol/L (3.5-5.1)
[2020-08-05 08:53] VITALS: BP 151/78
[2020-08-05] MEDS: DIGOXIN 0.125 MG TAB PO SCH (09:31)
[2020-08-05] MEDS: METOPROLOL TARTRATE 25 MG TAB PO SCH ×2 (09:31→21:36)
[2020-08-05] MEDS: MULTIPLE VITAMIN TAB PO SCH (09:31)
[2020-08-05] MEDS: HEPARIN SODIUM (PORCINE) 5000 UNITS/ML 1ML VIAL SC SCH ×2 (09:48→22:00)
[2020-08-05] MEDS ORDERED: POTASSIUM CHL 20 Meq TABLET PO ONE (11:00)
[2020-08-05 12:48] VITALS: BP 142/77
[2020-08-05 16:39] VITALS: BP 129/67
[2020-08-05] MEDS: SODIUM CHLORIDE 0.9% 1,000 ML IV SCH ×2 (17:55→17:56)
[2020-08-05] MEDS: TAMSULOSIN HYDROCHLORIDE 0.4 MG CAP PO SCH (17:55)
[2020-08-05] MEDS ORDERED: HEPARIN SODIUM (PORCINE) 5000 UNITS/ML 1ML VIAL ONE (21:31)
[2020-08-05 22:00] VITALS: BP 118/77
[2020-08-06] MEDS: SODIUM CHLORIDE 0.9% 1,000 ML IV SCH ×2 (03:30→13:01)
[2020-08-06 05:00] VITALS: BP 124/60
[2020-08-06] MEDS: PIPERACILLIN-TAZOB 2.25GM 50 ML IV SCH ×3 (05:36→17:54)
[2020-08-06 07:59] LABS: Basophils # (auto) 0 10 ^3/uL (0-0.2); Basophils % (auto) 0.5 % (0.0-2.0); Eosinophils # (auto) 0.1 10 ^3/uL (0-0.8); Eosinophils % (auto) 1.2 % (0.0-7.0); Hematocrit 36.2 % (41.0-53.0); Hemoglobin 12.3 g/dL (13.5-17.5); Lymphocytes # (auto) 0.7 10 ^3/uL (0.4-5.4); Lymphocytes % (auto) 8.1 % (10.0-50.0); Mean Corpuscular Hemoglobin 30.2 pg (28.0-32.0); Mean Corpuscular Hgb Conc. 33.9 g/dL (32.0-36.0); Mean Corpuscular Volume 89.3 fL (80.0-100.0); Monocytes # (auto) 0.7 10 ^3/uL (0-1.3); Monocytes % (auto) 7.3 % (0.0-12.0); Neutrophils # (auto) 7.4 10 ^3/uL (1.6-8.6); Neutrophils % (auto) 82.9 % (37.0-80.0); Platelet Count (auto) 353 10^3/uL (140-450); Red Blood Cells 4.06 10^6/uL (4.5-5.90)
[2020-08-06 08:00] LABS: BUN/Creatinine Ratio 18.6; Calcium 8.1 mg/dL (8.5-10.1); Potassium 3.3 mmol/L (3.5-5.1)
[2020-08-06 08:36] VITALS: BP 135/98
[2020-08-06] MEDS: MULTIPLE VITAMIN TAB PO SCH (09:29)
[2020-08-06] MEDS: METOPROLOL TARTRATE 25 MG TAB PO SCH (09:29)
[2020-08-06] MEDS: FAMOTIDINE 20 MG TAB PO SCH (09:29)
[2020-08-06] MEDS: HEPARIN SODIUM (PORCINE) 5000 UNITS/ML 1ML VIAL SC SCH ×2 (09:29→22:00)
[2020-08-06] MEDS: DIGOXIN 0.125 MG TAB PO SCH (09:29)
[2020-08-06 13:00] VITALS: BP 140/78
[2020-08-06 17:00] VITALS: BP 156/82
[2020-08-06] MEDS: TAMSULOSIN HYDROCHLORIDE 0.4 MG CAP PO SCH (17:54)
[2020-08-06 22:00] VITALS: BP 159/78
[2020-08-06] MEDS ORDERED: POTASSIUM CHL 20 Meq TABLET PO ONE (22:45)
[2020-08-07] MEDS: METOPROLOL TARTRATE 25 MG TAB PO SCH ×2 (01:47→09:31)
[2020-08-07] MEDS: PIPERACILLIN-TAZOB 2.25GM 50 ML IV SCH ×4 (01:50→18:00)
[2020-08-07] MEDS: SODIUM CHLORIDE 0.9% 1,000 ML IV SCH ×2 (01:50→09:30)
[2020-08-07 05:00] VITALS: BP 150/84
[2020-08-07 06:54] LABS: Potassium 3.4 mmol/L (3.5-5.1)
[2020-08-07 07:00] LABS: BUN/Creatinine Ratio 16.7; Calcium 7.6 mg/dL (8.5-10.1); Magnesium 1.7 mg/dL (1.6-2.6)
[2020-08-07 09:00] VITALS: BP 161/67
[2020-08-07] MEDS: HEPARIN SODIUM (PORCINE) 5000 UNITS/ML 1ML VIAL SC SCH (09:30)
[2020-08-07] MEDS: DIGOXIN 0.125 MG TAB PO SCH (09:31)
[2020-08-07] MEDS: MULTIPLE VITAMIN TAB PO SCH (09:31)
[2020-08-07] MEDS ORDERED: FAMOTIDINE 20 MG TAB PO SCH (10:00)
[2020-08-07] MEDS ORDERED: MAGNESIUM OXIDE 400 MG TAB PO ONE (12:30)
[2020-08-07] MEDS ORDERED: POTASSIUM CHL 20 Meq TABLET PO ONE (12:30)
[2020-08-07 13:00] VITALS: BP 147/76
[2020-08-07 16:34] VITALS: BP 154/84
[2020-08-07 16:37] VITALS: BP 147/76
[2020-08-07] MEDS: TAMSULOSIN HYDROCHLORIDE 0.4 MG CAP PO SCH (18:00)
== END 2020-08-07 18:58 | DRG 871 ==
LOC: ER 20:42 → TELE 07-31 06:14 → TELE-CENTR 07-31 09:33
PROVIDERS: ADMIT Nurse Practitioner Family; ATTEND Internal Medicine
PROC: 0T9030Z Drainage of Right Kidney with Drainage Device, Percutaneous Approach (ICD-10-PCS; principal; 2020-08-02)
PROC: BT141ZZ Fluoroscopy of Kidneys, Ureters and Bladder using Low Osmolar Contrast (ICD-10-PCS; 2020-08-02)
DX: A41.9 Sepsis, unspecified organism (principal); N17.0 Acute kidney failure with tubular necrosis; E87.1 Hypo-osmolality and hyponatremia; N12 Tubulo-interstitial nephritis, not specified as acute or chronic; I50.20 Unspecified systolic (congestive) heart failure; I13.0 Hypertensive heart and chronic kidney disease with heart failure and stage 1 through stage 4 chronic kidney disease, or unspecified chronic kidney disease; Z16.24 Resistance to multiple antibiotics; N13.6 Pyonephrosis; Z20.822 Contact with and (suspected) exposure to COVID-19; N40.0 Benign prostatic hyperplasia without lower urinary tract symptoms; D64.9 Anemia, unspecified; N13.9 Obstructive and reflux uropathy, unspecified; M51.36 Other intervertebral disc degeneration, lumbar region; N18.32 Chronic kidney disease, stage 3b; I48.91 Unspecified atrial fibrillation; K57.30 Diverticulosis of large intestine without perforation or abscess without bleeding; E87.6 Hypokalemia; N26.1 Atrophy of kidney (terminal); R65.20 Severe sepsis without septic shock; Z88.1 Allergy status to other antibiotic agents; Z79.82 Long term (current) use of aspirin; Z79.899 Other long term (current) drug therapy; Z87.442 Personal history of urinary calculi; Z90.49 Acquired absence of other specified parts of digestive tract
CPT/HCPCS: 36415; 71045; 74176; 74425; 76700; 76775; 76942; 80048; 80053; 81001; 83036; 83605; 83735; 83880; 85007; 85025; 85027; 85610; 85730; 86850; 86900; 86901; 87040; 87077; 87081; 87086; 87088; 87186; 87426; 93005; 93306; 96361; 96365; 96366; 96368; 97110; 97116; 97530; 99152; 99153; C1729; G0378; J2250; J2543; Q9967